=== PATIENT | female | born 1955 | race Caucasian/White ===

== ENCOUNTER → 2016-09-12 | Outpatient (CLI) | payer BC ==
--- NOTE | 2016-09-12 16:19 | BD ---
EXAMINATION TYPE: MG DEXA axial skeleton. DATE OF EXAM: 09/12/2016 3:59 PM COMPARISON: NONE CLINICAL HISTORY: asymptomatic ovarian failure post procedural Height: 63 Weight: 157 FRAX RISK QUESTIONS: Alcohol (3 or more units per day): no Family History (Parent hip fracture): no Glucocorticoids (More than 3mos): no (Ex: prednisone, prednisolone, methylprednisolone, dexamethasone, and hydrocortisone). History of Fracture in Adulthood: yes Secondary Osteoporosis: 1. Type 1 Diabetes: no 2. Hyperthyroidism: no 3. Menopause before 45: no 4. Malnutrition: no 5. Chronic liver disease: no Rheumatoid Arthritis: no Current Tobacco Use: no RISK FACTORS HISTORY OF: Hip Fracture (Left): When: 2005 Surgery to Hip(left)/ When: 2005 Other Fractures since Age 52: yes When: 2005 Active: Postmenopausal woman: MEDICATIONS: Additional Medications: zoloft Additional History: EXAM MEASUREMENTS: Bone mineral densitometry was performed using the [employer] System. Bone mineral density as measured about the Lumbar spine is: ----- L1-L4(G/cm2): 0.764 T Score Values are as follows: ----- L2: -3.3 ----- L3: -4.0 ----- L4: -3.9 ----- L1-L4: -3.5 Bone mineral density about the R hip (g/cm2): 0.810 T Score values are as follows: -----R Neck: -1.6 -----R Total: -2.0 IMPRESSION: Osteoporosis (T Score less than -2.5) as noted by T Score values at the:L1-L4 There is increased fracture risk and therapy is usually indicated based on age. Re-Screen 1-2 years. NOTE: T-SCORE=SD OF THE YOUNG ADULT MEAN.
--- NOTE | 2016-09-14 10:06 | MM ---
Reason for exam: screening (asymptomatic). Last mammogram was performed 1 year and 3 months ago. History: Patient is postmenopausal and has history of other cancer at age 29. Physical Findings: A clinical breast exam by your physician is recommended on an annual basis and results should be correlated with mammographic findings. MG Screening Mammo w CAD Bilateral CC and MLO view(s) were taken. Prior study comparison: June 26, 2015, bilateral MG screening mammo w CAD. May 23, 2014, bilateral MG screening mammo w CAD. November 14, 2012, bilateral digital screening mammo w/CAD. There are scattered fibroglandular densities. No significant changes when compared with prior studies. ASSESSMENT: Negative, BI-RAD 1 RECOMMENDATION: Routine screening mammogram of both breasts in 1 year.
== END | disposition home or self-care (01) ==
LOC: RADBDWWP 15:34
PROVIDERS: ATTEND Family Medicine
DX: Z12.31 Encounter for screening mammogram for malignant neoplasm of breast (principal); M81.8 Other osteoporosis without current pathological fracture; E89.40 Asymptomatic postprocedural ovarian failure
CPT/HCPCS: 77080; G0202

== ENCOUNTER → 2017-11-02 | Outpatient (CLI) | payer BC ==
--- NOTE | 2017-11-06 09:32 | MM ---
Reason for exam: screening (asymptomatic). Last mammogram was performed 1 year and 2 months ago. History: Patient is postmenopausal and has history of other cancer at age 29. Physical Findings: A clinical breast exam by your physician is recommended on an annual basis and results should be correlated with mammographic findings. MG Screening Mammo w CAD Bilateral CC and MLO view(s) were taken. Prior study comparison: September 12, 2016, bilateral MG screening mammo w CAD. June 26, 2015, bilateral MG screening mammo w CAD. The breast tissue is heterogeneously dense. This may lower the sensitivity of mammography. No suspicious abnormality. No significant changes when compared with prior studies. ASSESSMENT: Negative, BI-RAD 1 RECOMMENDATION: Routine screening mammogram of both breasts in 1 year.
== END | disposition home or self-care (01) ==
LOC: RADMAMWWP 15:30
PROVIDERS: ATTEND Family Medicine
DX: Z12.31 Encounter for screening mammogram for malignant neoplasm of breast (principal)
CPT/HCPCS: 77067

== ENCOUNTER → 2019-01-18 | Outpatient (CLI) | payer BC ==
--- NOTE | 2019-01-22 08:22 | MM ---
Reason for exam: screening (asymptomatic). Last mammogram was performed 1 year and 2 months ago. History: Patient is postmenopausal and has history of other cancer at age 29. Physical Findings: A clinical breast exam by your physician is recommended on an annual basis and results should be correlated with mammographic findings. MG Screening Mammo w CAD Bilateral CC and MLO view(s) were taken. Prior study comparison: November 02, 2017, bilateral MG screening mammo w CAD. September 12, 2016, bilateral MG screening mammo w CAD. There are scattered fibroglandular densities. No significant changes when compared with prior studies. ASSESSMENT: Negative, BI-RAD 1 RECOMMENDATION: Routine screening mammogram of both breasts in 1 year.
== END | disposition home or self-care (01) ==
LOC: RADMAMWWP 09:55
PROVIDERS: ATTEND Family Medicine
DX: Z12.31 Encounter for screening mammogram for malignant neoplasm of breast (principal)
CPT/HCPCS: 77067

== ENCOUNTER → 2020-04-30 | Outpatient (CLI) | payer BC ==
--- NOTE | 2020-05-04 09:41 | MM ---
Reason for exam: screening (asymptomatic). Last mammogram was performed 1 year and 3 months ago. History: Patient is postmenopausal and has history of other cancer at age 29. Took hormonal contraceptives for 15 years. Physical Findings: A clinical breast exam by your physician is recommended on an annual basis and results should be correlated with mammographic findings. MG Screening Mammo w CAD Bilateral CC and MLO view(s) were taken. Prior study comparison: January 18, 2019, bilateral MG screening mammo w CAD. November 02, 2017, bilateral MG screening mammo w CAD. There are scattered fibroglandular densities. There is no discrete abnormality. ASSESSMENT: Negative, BI-RAD 1 RECOMMENDATION: Routine screening mammogram of both breasts in 1 year.
== END | disposition home or self-care (01) ==
LOC: RADMAMWWP 16:26
PROVIDERS: ATTEND Family Medicine
DX: Z12.31 Encounter for screening mammogram for malignant neoplasm of breast (principal)
CPT/HCPCS: 77067

== ENCOUNTER 2020-05-15 16:45 | Emergency (ER) | payer BC ==
[2020-05-15 16:53] VITALS: RESP 18; TEMP 98.4
[2020-05-15] MEDS ORDERED: SODIUM CHLORIDE 0.9% 1,000 ML IV STA (17:13)
[2020-05-15] MEDS ORDERED: KETOROLAC 15 MG/ML 1 ML VIAL IVP STA (17:13)
--- NOTE | 2020-05-15 17:16 | ED ---
General Adult HPI - General Chief complaint: Back Pain/Injury Stated complaint: left side pain Time Seen by Provider: 05/15/20 16:45 Source: patient, RN notes reviewed, old records reviewed Mode of arrival: ambulatory Limitations: no limitations - History of Present Illness Initial comments: This a 64-year-old female who presents emergency Department complaining of left flank pain. Patient states she hadn't episode yesterday with severe pain 45 minutes and then it was just mild discomfort in the flank. Patient states it's on the left flank radiating into the back. Patient states she's never had pain like this before. Patient states that again occurred today it was a little worse than it was yesterday but again lasted for about 45 minutes to an hour. Patient states she has a little achiness that but she states the pain makes her nauseated. Patient denies any diarrhea patient denies any vomiting patient denies any fever chills patient denies any dysuria hematuria urinary frequency. Patient denies any chest pain difficulty breathing. - Related Data Home Medications Medication Instructions Recorded Confirmed Calcium 1200mg/Vitamin D 25mcg 1 cap PO HS 05/15/20 05/15/20 Sertraline HCl [Zoloft] 100 mg PO HS 05/15/20 05/15/20 Previous Rx's Medication Instructions Recorded Ketorolac [Toradol] 10 mg PO Q6HR #15 tab 05/15/20 Tamsulosin [Flomax] 0.4 mg PO DAILY #10 cap 05/15/20 Allergies Allergy/AdvReac Type Severity Reaction Status Date / Time Latex, Natural Rubber AdvReac Rash/Hives Verified 05/15/20 18:06 Review of Systems ROS Statement: Those systems with pertinent positive or pertinent negative responses have been documented in the HPI. ROS Other: All systems not noted in ROS Statement are negative. Past Medical History Past Medical History: No Reported History History of Any Multi-Drug Resistant Organisms: None Reported Past Surgical History: Hysterectomy, Orthopedic Surgery Additional Past Surgical History / Comment(s): hip Past Psychological History: No Psychological Hx Reported Smoking Status: Never smoker Past Alcohol Use History: None Reported Past Drug Use History: None Reported General Exam - General Exam Comments Initial Comments: GENERAL: Patient is well-developed and well-nourished. Patient is nontoxic and well- hydrated and is in mild distress. ENT: Neck is soft and supple. No significant lymphadenopathy is noted. Oropharynx is clear. Moist mucous membranes. Neck has full range of motion without eliciting any pain. There is no thyroid enlargement and no masses were felt. EYES: The sclera were anicteric and conjunctiva were pink and moist. Extraocular movements were intact and pupils were equal round and reactive to light. Eyelids were unremarkable. PULMONARY: Unlabored respirations. Good breath sounds bilaterally. No audible rales rhonchi or wheezing was noted. CARDIOVASCULAR: There is a regular rate and rhythm without any murmurs gallops or rubs. Femoral pulses are equal bilaterally ABDOMEN: Soft and nontender with normal bowel sounds. SKIN: Skin is clear with no lesions or rashes and otherwise unremarkable. NEUROLOGIC: Patient is alert and oriented x3. Cranial nerves II through XII are grossly intact. Motor and sensory are also intact. Normal speech, volume and content. Symmetrical smile. MUSCULOSKELETAL: Normal extremities with adequate strength and full range of motion. No lower extremity swelling or edema. No calf tenderness. LYMPHATICS: No significant lymphadenopathy is noted PSYCHIATRIC: Normal psychiatric evaluation. Limitations: no limitations Course Vital Signs 05/15/20 05/15/20 16:48 18:50 Temperature 98.4 F Pulse Rate 65 88 Respiratory 18 18 Rate Blood Pressure 147/78 133/66 O2 Sat by Pulse 100 100 Oximetry Medical Decision Making - Medical Decision Making CAT scan shows a small distal ureteral calculus. Patient does have hydroureter on the left. - Lab Data Result diagrams: 05/15/20 17:30 05/15/20 17:30 Lab Results 05/15/20 05/15/20 05/15/20 Range/Units 17: 17:30 17:30 WBC 9.1 (3.8-10.6) k/uL RBC 4.40 (3.80-5.40) m/uL Hgb 13.2 (11.4-16.0) gm/dL Hct 40.4 (34.0-46.0) % MCV 91.9 (80.0-100.0) fL MCH 30.0 (25.0-35.0) pg MCHC 32.7 (31.0-37.0) g/dL RDW 12.9 (11.5-15.5) % Plt Count 176 (150-450) k/uL MPV 8.8 Neutrophils % 75 % Lymphocytes % 18 % Monocytes % 4 % Eosinophils % 1 % Basophils % 0 % Neutrophils # 6.8 (1.3-7.7) k/uL Lymphocytes # 1.7 (1.0-4.8) k/uL Monocytes # 0.4 (0-1.0) k/uL Eosinophils # 0.1 (0-0.7) k/uL Basophils # 0.0 (0-0.2) k/uL Sodium 138 (137-145) mmol/L Potassium 4.6 (3.5-5.1) mmol/L Chloride 108 H (98-107) mmol/L Carbon Dioxide 22 (22-30) mmol/L Anion Gap 8 mmol/L BUN 27 H (7-17) mg/dL Creatinine 1.41 H (0.52-1.04) mg/dL Est GFR (CKD-EPI)AfAm 46 (>60 ml/min/1.73 sqM) Est GFR (CKD-EPI)NonAf 40 (>60 ml/min/1.73 sqM) Glucose 103 H (74-99) mg/dL Calcium 9.9 (8.4-10.2) mg/dL Total Bilirubin 0.5 (0.2-1.3) mg/dL AST 33 (14-36) U/L ALT 25 (4-34) U/L Alkaline Phosphatase 129 H (38-126) U/L Total Protein 7.8 (6.3-8.2) g/dL Albumin 4.7 (3.5-5.0) g/dL Amylase 72 (30-110) U/L Lipase 252 (23-300) U/L Urine Color Yellow Urine Appearance Clear (Clear) Urine pH 5.5 (5.0-8.0) Ur Specific Byron 1.031 (1.001-1.035) Urine Protein Trace H (Negative) Urine Glucose (UA) Negative (Negative) Urine Ketones Negative (Negative) Urine Blood Negative (Negative) Urine Nitrite Negative (Negative) Urine Bilirubin Negative (Negative) Urine Urobilinogen <2.0 (<2.0) mg/dL Ur Leukocyte Esterase Small H (Negative) Urine RBC 5 (0-5) /hpf Urine WBC 3 (0-5) /hpf Ur Squamous Epith Cells 2 (0-4) /hpf Calcium Oxalate Crystal Few H (None) /hpf Urine Mucus Occasional H (None) /hpf Disposition Clinical Impression: Kidney stone Disposition: HOME SELF-CARE Condition: Good Instructions (If sedation given, give patient instructions): Kidney Stones (ED) Prescriptions: Tamsulosin [Flomax] 0.4 mg PO DAILY #10 cap Ketorolac [Toradol] 10 mg PO Q6HR #15 tab Is patient prescribed a controlled substance at d/c from ED?: No Referrals: Pascual Garay MD [Primary Care Provider] - 1-2 days Time of Disposition: 18:55
--- NOTE | 2020-05-15 17:35 | XR ---
EXAMINATION TYPE: XR KUB DATE OF EXAM: 05/15/2020 COMPARISON: NONE HISTORY: Flank pain. Nausea. TECHNIQUE: 2 views FINDINGS: 2 views upright were obtained. There is no sign of intestinal obstruction or pneumoperitone um. Fecal pattern is normal. There are few pins in the left femoral neck. There is no evidence of a mass. IMPRESSION: Nonacute abdomen. No evidence of urinary tract calculus. There is mild loss of height of a few thoracic and lumbar vertebra consistent with osteoporosis.
[2020-05-15 17:51] LABS: Appearance,Urine Clear (Clear); Bilirubin,Urine Negative (Negative); Blood,Urine Negative (Negative); Calcium Oxalate Crystals,Urine Few /hpf; Color,Urine Yellow; Glucose,Urine (UA) Negative (Negative); Ketones,Urine Negative (Negative); Leukocyte Esterase,Urine Small (Negative); Mucus,Urine Occasional /hpf; Nitrite,Urine Negative (Negative); PH, Urine 5.5 (5.0-8.0); Protein,Urine Trace (Negative); RBC,Urine 5 /hpf (0-5); Specific Gravity,Urine 1.031 (1.001-1.035); Squamous Epithelial Cell,Urine 2 /hpf (0-4); Urobilinogen,Urine <2.0 mg/dL (<2.0); WBC,Urine 3 /hpf (0-5)
[2020-05-15 17:55] LABS: Basophils % (A) 0 %; Eosinophils # (A) 0.1 k/uL (0-0.7); Eosinophils % (A) 1 %; HCT 40.4 % (34.0-46.0); HGB 13.2 gm/dL (11.4-16.0); Lymphocytes # (A) 1.7 k/uL (1.0-4.8); Lymphocytes % (A) 18 %; MCHC 32.7 g/dL (31.0-37.0); MCV 91.9 fL (80.0-100.0); Mean Platelet Volume 8.8; Monocytes # (A) 0.4 k/uL (0-1.0); Monocytes % (A) 4 %; Neutrophils # (A) 6.8 k/uL (1.3-7.7); Neutrophils % (A) 75 %; Platelet Count 176 k/uL (150-450); RDW 12.9 % (11.5-15.5); WBC 9.1 k/uL (3.8-10.6)
[2020-05-15 18:00] LABS: Albumin 4.7 g/dL (3.5-5.0); Calcium 9.9 mg/dL (8.4-10.2); Potassium 4.6 mmol/L (3.5-5.1); Total Bilirubin 0.5 mg/dL (0.2-1.3); Total Protein 7.8 g/dL (6.3-8.2)
--- NOTE | 2020-05-15 18:51 | CT ---
EXAMINATION TYPE: CT abdomen pelvis wo con DATE OF EXAM: 05/15/2020 COMPARISON: None HISTORY: Left sided flank pain. CT DLP: 549.9 mGycm Automated exposure control for dose reduction was used. Images were obtained from the diaphragm to the floor the pelvis without contrast. Lung bases are clear of infiltrate. There is no pleural effusion. There is no pericardial effusion. There is small posterior left side diaphragmatic hernia that contains fat this measures 3 cm. There is small hiatal hernia. Liver spleen stomach pancreas gallbladder appear intact. Bile ducts are not dilated. There is no adrenal mass. Kidneys have normal size. There is mild left-sided hydronephrosis. There is probably a 5 mm calculus in the distal left ureter on axial image 123. There is mild left-sided hydr oureter. There is no retroperitoneal adenopathy. I see no evidence of a renal mass. There is no evide nce of calculus within the kidneys. Appendix is posterior and appears normal. There is no mesenteric edema. There is no ascites or free a ir. There are numerous diverticula in the ethmoid: Descending colon. There is metal artifact from lef t hip surgery. There is no free fluid in the pelvis. The lumbar vertebra have normal alignment. There is 20% wedging of L2 vertebral body that is probably old. There is also 20% biconcave deformity of T12 vertebra. IMPRESSION: Left side mild hydronephrosis and hydroureter with small obstructing calculus in the distal left uret er. Normal appendix.
[2020-05-15 18:52] VITALS: BP 133/66; PULSE 88
== END 2020-05-15 19:20 | disposition home or self-care (01) ==
LOC: EC 16:45
DX: N20.2 Calculus of kidney with calculus of ureter (principal); Z90.710 Acquired absence of both cervix and uterus; Z91.040 Latex allergy status
CPT/HCPCS: 36415; 80053; 82150; 83690; 85025; 81001; 74018; 74176; 99284; 96374; 96361; J1885

== ENCOUNTER → 2020-06-09 | Outpatient (CLI) | payer BC ==
--- NOTE | 2020-06-09 21:26 | CT ---
EXAMINATION TYPE: CT ankle LT wo con DATE OF EXAM: 06/09/2020 COMPARISON: None HISTORY: left ankle pain following fall CT DLP: 240 mGycm Automated exposure control for dose reduction was used. CONTRAST: None FINDINGS: Images were obtained at 2 mm thick sections. Images were obtained through fiberglass splint. There is an oblique fracture of the distal fibula. This extends to the anterior inferior most portion . Posterior tibial fracture is present extending into the articular surface. Posterior medial malleolar fracture is evident. This appears comminuted. There may be some mild lateral displacement of the talus in relation to the medial tibia. Small avuls ion from the medial talus is evident. Achilles tendon calcification is evident. Three-D reconstructed images performed separately by the technologist are reviewed. IMPRESSION: 1. TRIMALLEOLAR FRACTURE. 2. THE MEDIAL MALLEOLAR PORTION APPEARS COMMINUTED. 3. LONG OBLIQUE FRACTURE OF THE DISTAL FIBULA EXTENDS INTO THE ANTERIOR DISTAL FIBULA. 4. POSTERIOR TIBIAL FRACTURE WITH EXTENSION INTO THE ARTICULAR SURFACE. SMALL STEP-OFF IS PRESENT. 5. MEDIAL TALAR AVULSION. 6. MINIMAL SUBLUXATION OF THE TIBIA IN RELATION TO THE MEDIAL MALLEOLUS ESTIMATED AT 1 TO 2 MM.
== END | disposition home or self-care (01) ==
LOC: RADCTMAIN 16:08
PROVIDERS: ATTEND Orthopaedic Surgery
DX: S82.852A Displaced trimalleolar fracture of left lower leg, initial encounter for closed fracture (principal); S82.52XA Displaced fracture of medial malleolus of left tibia, initial encounter for closed fracture; S82.432A Displaced oblique fracture of shaft of left fibula, initial encounter for closed fracture; S82.202A Unspecified fracture of shaft of left tibia, initial encounter for closed fracture; S92.152A Displaced avulsion fracture (chip fracture) of left talus, initial encounter for closed fracture; S93.02XA Subluxation of left ankle joint, initial encounter

== ENCOUNTER 2021-04-09 07:20 | Emergency (ER) | payer BC ==
[2021-04-09 08:05] VITALS: RESP 18
[2021-04-09] MEDS ORDERED: SODIUM CHLORIDE 0.9% 50 ML IVPB ONE (09:15)
[2021-04-09] MEDS ORDERED: BAMLANIVIMAB (EUA) 700 MG, ETESEVIMAB (EUA) 1,400 MG in SODIUM CHLORIDE 0.9% 50 ML IVPB ONE (09:15)
--- NOTE | 2021-04-09 10:19 | ED ---
URI HPI - General Chief Complaint: Upper Respiratory Infection Stated Complaint: Covid Swab Time Seen by Provider: 04/09/21 08:00 Source: patient, RN notes reviewed Mode of arrival: ambulatory Limitations: no limitations - History of Present Illness Initial Comments: 65-year-old female presents emergency Department with chief complaint of mild cough congestion loss of taste and smell. Patient states this is started last few days. Patient had a prior COVID-19 vaccination no prior infection denies any chest pain shortness breath no GI symptoms no other complaints. - Related Data Home Medications Medication Instructions Recorded Confirmed Calcium 1200mg/Vitamin D 25mcg 1 cap PO HS 05/15/20 05/15/20 Sertraline HCl [Zoloft] 100 mg PO HS 05/15/20 05/15/20 Previous Rx's Medication Instructions Recorded Ketorolac [Toradol] 10 mg PO Q6HR #15 tab 05/15/20 Tamsulosin [Flomax] 0.4 mg PO DAILY #10 cap 05/15/20 Allergies Allergy/AdvReac Type Severity Reaction Status Date / Time Latex, Natural Rubber AdvReac Rash/Hives Verified 04/09/21 08:05 Review of Systems ROS Statement: Those systems with pertinent positive or pertinent negative responses have been documented in the HPI. ROS Other: All systems not noted in ROS Statement are negative. Past Medical History Past Medical History: No Reported History History of Any Multi-Drug Resistant Organisms: None Reported Past Surgical History: Hysterectomy, Orthopedic Surgery Additional Past Surgical History / Comment(s): hip Past Psychological History: Depression Smoking Status: Never smoker Past Alcohol Use History: None Reported Past Drug Use History: None Reported General Exam Limitations: no limitations General appearance: alert, in no apparent distress Head exam: Present: atraumatic, normocephalic, normal inspection Eye exam: Present: normal appearance, PERRL, EOMI. Absent: scleral icterus, conjunctival injection, periorbital swelling ENT exam: Present: normal exam, normal oropharynx, mucous membranes moist Neck exam: Present: normal inspection, full ROM. Absent: tenderness, meningismus, lymphadenopathy Respiratory exam: Present: normal lung sounds bilaterally. Absent: respiratory distress, wheezes, rales, rhonchi, stridor Cardiovascular Exam: Present: regular rate, normal rhythm, normal heart sounds. Absent: systolic murmur, diastolic murmur, rubs, gallop, clicks GI/Abdominal exam: Present: soft, normal bowel sounds. Absent: distended, tenderness, guarding, rebound, rigid Course Vital Signs 04/09/21 08:02 Temperature 99.1 F Pulse Rate 80 Respiratory 18 Rate Blood Pressure 141/66 O2 Sat by Pulse 98 Oximetry Medical Decision Making - Medical Decision Making Patient has COVID-19 patient did receive monoclonal antibodies will be discharged in stable condition. - Lab Data Lab Results 04/09/21 Range/Units 08:07 Coronavirus (PCR) Detected A (Not Detectd) Disposition Clinical Impression: COVID-19 Disposition: HOME SELF-CARE Condition: Stable Instructions (If sedation given, give patient instructions): Coronavirus Disease 2019 (COVID-19) Additional Instructions: Please return to the Emergency Department if symptoms worsen or any other concerns. Is patient prescribed a controlled substance at d/c from ED?: No Referrals: Pascual Garay MD [Primary Care Provider] - 1-2 days Time of Disposition: 10:18
[2021-04-09 11:40] VITALS: BP 130/72; PULSE 67; TEMP 97.8
== END 2021-04-09 11:20 | disposition home or self-care (01) ==
LOC: EC 07:20
DX: U07.1 COVID-19 (principal); Z91.040 Latex allergy status
CPT/HCPCS: 87635; 99283; J3490

== ENCOUNTER → 2021-08-11 | Outpatient (CLI) | payer BC ==
--- NOTE | 2021-08-12 11:54 | MM ---
Reason for exam: screening (asymptomatic). Last mammogram was performed 1 year and 3 months ago. History: Patient is postmenopausal and has history of other cancer at age 29. Took hormonal contraceptives for 15 years. Physical Findings: A clinical breast exam by your physician is recommended on an annual basis and results should be correlated with mammographic findings. MG 3D Screening Mammo W/Cad Bilateral CC and MLO view(s) were taken. XCCL view(s) were taken of the left breast. Prior study comparison: April 30, 2020, bilateral MG screening mammo w CAD. January 18, 2019, bilateral MG screening mammo w CAD. There are scattered fibroglandular densities. No significant changes when compared with prior studies. ASSESSMENT: Benign, BI-RAD 2 RECOMMENDATION: Routine screening mammogram of both breasts in 1 year.
== END | disposition home or self-care (01) ==
LOC: RADMAMWWP 16:02
PROVIDERS: ATTEND Family Medicine
DX: Z12.31 Encounter for screening mammogram for malignant neoplasm of breast (principal); M81.0 Age-related osteoporosis without current pathological fracture
CPT/HCPCS: 77063; 77067

== ENCOUNTER → 2021-10-19 | Outpatient (CLI) | payer BC ==
--- NOTE | 2021-10-19 19:13 | BD ---
EXAMINATION TYPE: Axial Bone Density DATE OF EXAM: 10/19/2021 COMPARISON: 09/12/2016 CLINICAL HISTORY: 66 years year old Female. ICD-10 CODE: M81.0 Osteoporosis Height: 62 IN Weight: 152 LBS FRAX RISK QUESTIONS: History of Fracture in Adulthood: LT HIP FX AGE 50; LT FOOTFX AGE 65 RISK FACTORS HISTORY OF: Hip Fracture (Left): AGE 50 History of Wrist Fracture: LEFT AGE 14 Surgery to Hip(left): AGE 50 Active: YES Diet low in dairy products/other sources of calcium: YES Postmenopausal woman: TOTAL HYST AGE 50 MEDICATIONS: Additional Medications: CALCIUM, VIT D, ZOLOFT, IRON EXAM MEASUREMENTS: Bone mineral densitometry was performed using the [employer] System. Bone mineral density as measured about the Lumbar spine is: ----- L1-L4(G/cm2): 0.848 T Score Values are as follows: ----- L1: -2.1 ----- L2: -2.5 ----- L3: -3.3 ----- L4: -3.1 ----- L1-L4: -2.8 Bone mineral density has: Increased 12.1% since study of: 09/12/2016 Bone mineral density about the R hip (g/cm2): 0.832 T Score values are as follows: -----R Neck: -1.5 -----R Total: -1.9 Bone mineral density has: Increased 1.2% since study of: 09/12/2016 FRAX%s: The graph provided illustrates a 14.4 chance for a major osteoporotic fx and a 1.5 chance for the hips probability for fx in 10 years time. IMPRESSION: Osteoporosis (T Score less than -2.5). There is increased fracture risk and therapy is usually indicated based on age. Re-Screen 1-2 years. NOTE: T-SCORE=SD OF THE YOUNG ADULT MEAN.
== END | disposition home or self-care (01) ==
LOC: RADBDWWP 15:53
PROVIDERS: ATTEND Family Medicine
DX: M81.0 Age-related osteoporosis without current pathological fracture (principal)
CPT/HCPCS: 77080

== ENCOUNTER → 2022-09-07 | Outpatient (CLI) | payer BC ==
--- NOTE | 2022-09-08 19:09 | MM ---
Reason for Exam: Screening (asymptomatic). Last mammogram was performed 1 year(s) and 1 month(s) ago. Patient History: Menarche at age 18. Patient has no children. Left ovary removed at age 50. Right ovary removed at age 50. Hysterectomy at age 50. Postmenopausal. Patient used Hormonal Contraceptives for 15 years. Risk Values: Ninoska 5 year model risk: 1.6%. NCI Lifetime model risk: 6.6%. Prior Study Comparison: 01/18/2019 Bilateral Screening Mammogram, [facility]. 04/30/2020 Bilateral Screening Mammogram, [facility]. 08/11/2021 Bilateral Screening Mammogram, [facility]. Tissue Density: There are scattered fibroglandular densities. Findings: Analyzed By CAD. There is no suspicious group of microcalcifications or new suspicious mass in either breast. Overall Assessment: Negative, BI-RAD 1 Management: Screening Mammogram of both breasts in 1 year. . Patient should continue monthly self-breast exams. A clinical breast exam by your physician is recommended on an annual basis. This exam should not preclude additional follow-up of suspicious palpable abnormalities. Note on Ninoska scores and lifetime risk: 1. A Ninoska score greater than 3% is considered moderate risk. If this is the case, consider specialist referral to assess eligibility for a risk reducing agent. 2. If overall lifetime risk for the development of breast cancer is 20% or higher, the patient may qualify for future screening with alternating mammogram and breast MRI. Electronically signed and approved by: Carmelo Montoya M.D. Radiologist
== END | disposition home or self-care (01) ==
LOC: RADMAMWWP 15:40
PROVIDERS: ATTEND Nurse Practitioner Family
DX: Z12.31 Encounter for screening mammogram for malignant neoplasm of breast (principal); Z78.0 Asymptomatic menopausal state; Z90.721 Acquired absence of ovaries, unilateral
CPT/HCPCS: 77063; 77067

== ENCOUNTER → 2023-02-06 | Outpatient (CLI) | payer BC, MEDICARE ==
--- NOTE | 2023-02-06 09:21 | BD ---
EXAMINATION TYPE: Axial Bone Density DATE OF EXAM: 02/06/2023 CLINICAL HISTORY: 67 years old Female. ICD-10 CODE: M85.9 DISORDER OF BONE DENSITY Height: 63 Weight: 154.8 FRAX RISK QUESTIONS: Alcohol (3 or more units per day): no Family History (Parent hip fracture): no Glucocorticoids (More than 3mos): no History of Fracture in Adulthood: yes Secondary Osteoporosis: 1. Type 1 Diabetes: no 2. Hyperthyroidism: no 3. Menopause before 45: no 4. Malnutrition: no 5. Chronic liver disease: no Rheumatoid Arthritis: no Current Tobacco Use: no RISK FACTORS HISTORY OF: Hip Fracture (Right/Left): Lt Hip When: 2006 Spine Fracture: no When: History of Wrist Fracture: Lt Wrist When: Age 14 Surgery to Spine/Hip(right/left)/Wrist (right/left): Yes Family History of Osteoporosis: no Active: no Diet low in dairy products/other sources of calcium: no Postmenopausal woman: yes Take estrogen and/or progesterone medications: no Lost more than 2 inches in height since high school: no Frequent falls: no Poor Health: no Hyperparathyroidism: no Adrenal Insufficiency: no MEDICATIONS: Prednisone or other steroids: no Thyroid Medications:no Osteoporosis Medications: no Additional Medications: Zoloft, Iron, Calcium, Vit D Additional History: EXAM MEASUREMENTS: Bone mineral densitometry was performed using the [employer] System. Bone mineral density as measured about the Lumbar spine is: ----- L1-L4(G/cm2): 0.809 T Score Values are as follows: ----- L1: -2.5 ----- L2: -3.1 ----- L3: -3.4 ----- L4: -3.4 ----- L1-L4: -3.1 Z Score Values are as follows: ----- L1: -1.0 ----- L2: -1.6 ----- L3: -2.0 ----- L4: -2.0 ----- L1-L4: -1.7 Bone mineral density has: increased 1.7 % since study of: 10/19/2021 Bone mineral density about the L hip (g/cm2): 0.779 T Score values are as follows: -----L Neck: -1.3 -----L Total: -1.8 Z Score values are as follows: -----L Neck: 0.1 -----L Total: -0.7 Bone mineral density has: increased 1.7 % since study of: 10/19/2021 FRAX%s: The graph provided illustrates a 13.9% chance for a major osteoporotic fx and a 1.3% chance f or the hips probability for fx in 10 years time. IMPRESSION: Osteoporosis (T Score less than -2.5). There is increased fracture risk and therapy is usually indicated based on age. Re-Screen 1-2 years. NOTE: T-SCORE=SD OF THE YOUNG ADULT MEAN.
[2023-02-06 10:32] LABS: Basophils # (A) 0.1 k/uL (0-0.2); Basophils % (A) 1 %; Eosinophils # (A) 0.2 k/uL (0-0.7); Eosinophils % (A) 3 %; HCT 39.5 % (34.0-46.0); HGB 12.8 gm/dL (11.4-16.0); Lymphocytes # (A) 1.7 k/uL (1.0-4.8); Lymphocytes % (A) 29 %; MCH 30.9 pg (25.0-35.0); MCHC 32.3 g/dL (31.0-37.0); MCV 95.9 fL (80.0-100.0); Mean Platelet Volume 9.8; Monocytes # (A) 0.3 k/uL (0-1.0); Monocytes % (A) 5 %; Neutrophils # (A) 3.4 k/uL (1.3-7.7); Neutrophils % (A) 60 %; Platelet Count 135 k/uL (150-450); RBC 4.12 m/uL (3.80-5.40); WBC 5.7 k/uL (3.8-10.6)
[2023-02-06 11:00] LABS: ALT 25 U/L (4-34); AST 30 U/L (14-36); African American GFR (CKD) >90 (>60 ml/min/1.73 sqM); Alkaline Phosphatase 117 U/L (38-126); Anion Gap 8 mmol/L; Blood Urea Nitrogen 21 mg/dL (7-17); Calcium 9.4 mg/dL (8.4-10.2); Carbon Dioxide 27 mmol/L (22-30); Chloride 108 mmol/L (98-107); Glucose 88 mg/dL (74-99); Non-African American GFR(CKD) 81 (>60 ml/min/1.73 sqM); Potassium 4.5 mmol/L (3.5-5.1); Sodium 143 mmol/L (137-145); Total Bilirubin 0.6 mg/dL (0.2-1.3); Total Protein 6.9 g/dL (6.3-8.2)
[2023-02-06 17:14] LABS: Chol/HDL Ratio 2.71 Ratio; LDL Cholesterol,Calculated 100.9 mg/dL (0.0-131.0)
== END | disposition home or self-care (01) ==
LOC: RADBDWWP 08:38
PROVIDERS: ATTEND Family Medicine
DX: Z00.00 Encounter for general adult medical examination without abnormal findings (principal); M81.0 Age-related osteoporosis without current pathological fracture; M85.852 Other specified disorders of bone density and structure, left thigh; Z78.0 Asymptomatic menopausal state
CPT/HCPCS: 77080; 80053; 80061; 82306; 85025; 93005

== ENCOUNTER 2023-09-06 10:34 | Day surgery (SDC) | payer MEDICARE ==
[2023-09-06] MEDS: LACTATED RINGERS 1,000 ML IV SCH (11:30)
[2023-09-06] MEDS ORDERED: ONDANSETRON 4 MG/2 ML VIAL ONE (11:37)
[2023-09-06] MEDS: ONDANSETRON 4 MG/2 ML VIAL IVP ONE (11:38)
[2023-09-06] MEDS ORDERED: PROPOFOL 10 MG/ML 20 ML VIAL IV ONE (11:54)
--- NOTE | 2023-09-06 11:54 | P.GSHP ---
History of Present Illness H&P Date: 09/06/23 CHIEF COMPLAINT: GERD and colon screen HISTORY OF PRESENT ILLNESS: The patient is a 67-year-old female who presents with gastroesophageal reflux disease and need for colon screen. Upper and lower endoscopy were offered for further evaluation and management. PAST MEDICAL HISTORY: Please see list. PAST SURGICAL HISTORY: Please see list. MEDICATIONS: Please see list. ALLERGIES: Please see list. SOCIAL HISTORY: No illicit drug use FAMILY HISTORY: No reports of Crohn disease or ulcerative colitis. REVIEW OF ORGAN SYSTEMS: CONSTITUTIONAL: No reports of fevers or chills. GI: Denies any blood in stools or constipation. PHYSICAL EXAM: VITAL SIGNS: Stable GENERAL: Well-developed pleasant in no acute distress. HEENT: No scleral icterus. Extraocular movements grossly intact. Moist buccal mucosa. NECK: Supple without lymphadenopathy. CHEST: Unlabored respirations. Equal bilateral excursions. CARDIOVASCULAR: Regular rate and rhythm. Distal 2+ pulses. ABDOMEN: Soft, nondistended. MUSCULOSKELETAL: No clubbing, cyanosis, or edema. ASSESSMENT: 1. Gastroesophageal reflux disease 2. Colon screen. PLAN: 1. Recommend proceeding with an upper and lower endoscopy Past Medical History Past Medical History: No Reported History Additional Past Medical History / Comment(s): Discomfort with swallowing/occasional abdominal pain. Hiatal hernia History of Any Multi-Drug Resistant Organisms: None Reported Past Surgical History: Hysterectomy, Orthopedic Surgery Additional Past Surgical History / Comment(s): L foot fracture/orif with alicia, L hip fracture/orif/pins, colonoscopy Past Anesthesia/Blood Transfusion Reactions: Postoperative Nausea & Vomiting (PONV) Smoking Status: Never smoker - Past Family History Mother Additional Family Medical History / Comment(s): Pulmonary fibrosis Medications and Allergies Home Medications Medication Instructions Recorded Confirmed Type Calcium 1200mg/Vitamin D 25mcg 1 cap PO 1700 05/15/20 09/06/23 History Sertraline HCl [Zoloft] 100 mg PO 1700 05/15/20 09/06/23 History Acetaminophen [Tylenol Extra 500 mg PO Q6H PRN 08/30/23 09/06/23 History Strength] Ferrous Sulfate [Iron (65 MG 325 mg PO 1700 08/30/23 08/30/23 History Elemental)] Allergies Allergy/AdvReac Type Severity Reaction Status Date / Time Latex, Natural Rubber AdvReac Rash/Hives Verified 09/06/23 11:20
--- NOTE | 2023-09-06 12:02 | P.PCN ---
Date of Procedure: 09/06/23 Description of Procedure: PREOPERATIVE DIAGNOSIS: Gastroesophageal reflux disease. POSTOPERATIVE DIAGNOSIS: Gastroesophageal reflux disease erosive esophagitis Gastritis. Diaphragmatic hiatal hernia OPERATION: Esophagogastroduodenoscopy SURGEON: Linda Rich MD ANESTHESIA: MAC. INDICATIONS: The patient is a 67-year-old female who presents with reflux disease. Benefits and risks of the procedure were described. Informed consent was obtained. DESCRIPTION: The patient was brought into the endoscopy suite and laid in the left lateral decubitus position. An Olympus gastroscope was passed along the posterior oropharynx down to the distal esophagus where the squamocolumnar junction was encountered at 32 cm from the incisors. The stomach was entered and no bile reflux was found. Additional findings are listed below. The first through third portion of the duodenum was examined. Retroflexion of the scope confirmed Hill grade 4 lower esophageal valve. The squamocolumnar junction demonstrated LA grade C erosive esophagitis. The stomach was desufflated. The patient tolerated the procedure well. FINDINGS: Squamocolumnar junction 32 cm from the incisors. Diaphragmatic hiatus at 35 cm. Hiatal hernia, 3 cm Hill grade 4 lower esophageal valve. LA grade C erosive esophagitis. Chronic gastritis RECOMMENDATIONS: Recommend an upper GI to assess severity of reflux and hiatal hernia
--- NOTE | 2023-09-06 13:11 | P.PCN ---
Date of Procedure: 09/06/23 Description of Procedure: PREOPERATIVE DIAGNOSIS: Colonoscopy screening. POSTOPERATIVE DIAGNOSIS: Colonoscopy screening. Diverticulosis, scattered. OPERATION: Colonoscopy to the cecum, ileocecal valve and appendiceal orifice. SURGEON: Linda Rich MD. ANESTHESIA: MAC. INDICATIONS: The patient is a 67-year-old female who presents for colonoscopy screening. Benefits and risks were described and informed consent was obtained. DESCRIPTION OF PROCEDURE: The patient had undergone GoLytely prep. The patient had been brought into the operating room and laid in the left lateral decubitus position. After adequate intravenous sedation, the rectum was examined with 2% lidocaine jelly. No external hemorrhoids were encountered. The rectal tone was within normal limits. No lesions were palpated in the rectal vault. An Olympus colonoscope was advanced until the cecum, ileocecal valve and appendiceal orifice were clearly viewed. The prep was excellent. Scattered diverticulosis was encountered. No colonic polyps were found. No evidence of focal colitis was found. Retroflexion of the scope demonstrated grade 2 internal hemorrhoids without active bleeding or inflammation. The colon was desufflated. The patient had tolerated the procedure well. Withdrawal time was over 6 minutes. FINDINGS: Aronchick preparation quality scale 1 (1-5) Internal hemorrhoids, grade 2 No external prolapsed hemorrhoids. No arteriovenous malformations. No adenomatous polyps. No focal colitis. RECOMMENDATIONS: Lower endoscopy 10 years, 2033 Plan - Discharge Summary Discharge Rx Participant: No New Discharge Prescriptions: New Omeprazole [PriLOSEC] 40 mg PO DAILY #14 cap Continue Sertraline HCl [Zoloft] 100 mg PO 1700 Calcium 1200mg/Vitamin D 25mcg 1 cap PO 1700 Acetaminophen [Tylenol Extra Strength] 500 mg PO Q6H PRN PRN Reason: Pain Ferrous Sulfate [Iron (65 MG Elemental)] 325 mg PO 1700 Discharge Medication List Calcium 1200mg/Vitamin D 25mcg 1 cap PO 1700 05/15/20 [History] Sertraline HCl [Zoloft] 100 mg PO 1700 05/15/20 [History] Acetaminophen [Tylenol Extra Strength] 500 mg PO Q6H PRN 08/30/23 [History] Ferrous Sulfate [Iron (65 MG Elemental)] 325 mg PO 1700 08/30/23 [History] Omeprazole [PriLOSEC] 40 mg PO DAILY #14 cap 09/06/23 [Rx] Follow up Appointment(s)/Referral(s): Linda Rich MD [STAFF PHYSICIAN] - 09/26/23 11:45 am Patient Instructions/Handouts: *Surgery [facility] - (Anesthesia) Discharge Instructions Outpatient Surgery, Hiatal Hernia (DC), Diverticulosis (DC), Diverticulosis Diet (GEN), Esophagitis (DC), Colonoscopy (DC), Upper Endoscopy (DC), Diverticulitis Diet (DC), Diverticulosis (GEN), Hiatal Hernia (ED) Activity/Diet/Wound Care/Special Instructions: Repeat colonoscopy 10 years, 2033 Discharge Disposition: HOME SELF-CARE
[2023-09-06 13:37] VITALS: BP 149/78; PULSE 51; RESP 18
== END 2023-09-06 13:30 | disposition home or self-care (01) ==
LOC: ORWHC2ENDO 10:34
PROVIDERS: ATTEND Surgery Plastic and Reconstructive Surgery
DX: Z12.11 Encounter for screening for malignant neoplasm of colon (principal); K57.30 Diverticulosis of large intestine without perforation or abscess without bleeding; K64.1 Second degree hemorrhoids; K44.9 Diaphragmatic hernia without obstruction or gangrene; K21.00 Gastro-esophageal reflux disease with esophagitis, without bleeding; K29.70 Gastritis, unspecified, without bleeding; K22.10 Ulcer of esophagus without bleeding; Z91.040 Latex allergy status; Z90.710 Acquired absence of both cervix and uterus; Z79.899 Other long term (current) drug therapy
CPT/HCPCS: 45378; 43235; J2405; J2704

== ENCOUNTER → 2024-03-11 | Outpatient (CLI) | payer MEDICARE ==
--- NOTE | 2024-03-12 09:51 | MM ---
Reason for Exam: Screening (asymptomatic). Last mammogram was performed 1 year(s) and 6 month(s) ago. Patient History: Menarche at age 18. Patient has no children. Left ovary removed at age 50. Right ovary removed at age 50. Hysterectomy at age 50. Postmenopausal. Patient used Hormonal Contraceptives for 15 years. Risk Values: Ninoska 5 year model risk: 1.7%. NCI Lifetime model risk: 6.1%. Prior Study Comparison: 04/30/2020 Bilateral Screening Mammogram, [facility]. 08/11/2021 Bilateral Screening Mammogram, [facility] 09/07/2022 Bilateral MG 3D screening mammo w/cad, [facility]. Tissue Density: The breasts are heterogeneously dense, which may obscure small masses. Findings: Analyzed By CAD. There is no suspicious group of microcalcifications or new suspicious mass in either breast. Overall Assessment: Benign, BI-RAD 2 Management: Screening Mammogram of both breasts in 1 year. . Patient should continue monthly self-breast exams. A clinical breast exam by your physician is recommended on an annual basis. This exam should not preclude additional follow-up of suspicious palpable abnormalities. Note on Ninoska scores and lifetime risk: 1. A Ninoska score greater than 3% is considered moderate risk. If this is the case, consider specialist referral to assess eligibility for a risk reducing agent. 2. If overall lifetime risk for the development of breast cancer is 20% or higher, the patient may qualify for future screening with alternating mammogram and breast MRI. [facility], , 03/12/2024 9:48 AM. Electronically signed and approved by: Mitch Choi M.D. Radiologis
== END | disposition home or self-care (01) ==
LOC: RADMAMWWP 15:15
PROVIDERS: ATTEND Family Medicine
DX: Z12.31 Encounter for screening mammogram for malignant neoplasm of breast (principal); Z78.0 Asymptomatic menopausal state; R92.333 Mammographic heterogeneous density, bilateral breasts
CPT/HCPCS: 77063; 77067

== ENCOUNTER → 2024-07-12 | Outpatient (CLI) | payer MEDICARE ==
--- NOTE | 2024-07-13 12:25 | CT ---
EXAMINATION TYPE: CT chest wo con DATE OF EXAM: 07/12/2024 3:49 PM COMPARISON: 05/13/2020 CLINICAL INDICATION: Female, 68 years old with history of J84.9 INTERSTITIAL PULMONARY DISEASE, UNSPE CIFIED; PHH, Hx. pulmonary fibrosis. TECHNIQUE: Multiple axial images were obtained through the chest. Sagittal and coronal reformats were created for review. MIP was performed on a separate workstation. Contrast used: mL of (None if empty) Oral contrast used: (None if empty) CT DLP: 640.8 mGycm, Automated exposure control for dose reduction was used. FINDINGS: LUNGS: There is no evidence of interstitial thickening, significant groundglass opacity, honeycombing or architectural distortion in the lungs. No acute area of infiltrative or consolidative change. Le ft posterior fat-containing Bochdalek hernia. Bilateral apical scarring left greater than right. LARGE AIRWAYS: Central airways are patent. No dynamic airway collapse on expiratory imaging. No bronc hiectasis. No bronchial wall thickening. PLEURA: No pleural effusion or thickening. HEART: Size within normal limits. No significant coronary artery calcifications. MEDIASTINUM: No gross evidence of adenopathy. Small hiatal hernia. VASCULATURE: No aortic aneurysm. MUSCULOSKELETAL: No acute osseous abnormalities SOFT TISSUES/LYMPH NODES: Unremarkable. LOWER NECK: No significant findings. UPPER ABDOMEN: No significant findings. IMPRESSION: 1. No evidence for pulmonary fibrosis. No significant interstitial lung disease. 2. Left posterior fat-containing Bochdalek hernia. 3. Small hiatal hernia. Follow up recommendations for incidental pulmonary nodules, if there are any, are per [employer]?s [employer] or [employer]. https://radiopaedia.org/articles/ljeeanfvpi-peltkoa-nezbnwvwv-tcwlav-xclsifyqtatqhew-[email or web address]?lang=us [facility], , 07/13/2024 12:22 PM
== END | disposition home or self-care (01) ==
LOC: RADCTMAIN 15:04
PROVIDERS: ATTEND Internal Medicine Critical Care Medicine
DX: J84.9 Interstitial pulmonary disease, unspecified (principal); K44.9 Diaphragmatic hernia without obstruction or gangrene
CPT/HCPCS: 71250